=== PATIENT | female | born 1980 | race Caucasian/White ===

== ENCOUNTER 2021-09-20 08:51 | Outpatient (CLI) | payer OTHER | END 2021-09-20 08:52 | disposition home or self-care (01) | LOC: CSHCT 08:51 | PROVIDERS: ATTEND Internal Medicine | DX: R63.4 Abnormal weight loss (principal); M25.50 Pain in unspecified joint; L98.9 Disorder of the skin and subcutaneous tissue, unspecified; I25.10 Atherosclerotic heart disease of native coronary artery without angina pectoris; N20.0 Calculus of kidney | CPT/HCPCS: 71260; 71270; 74177 ==

== ENCOUNTER 2021-11-06 09:28 | Outpatient (CLI) | payer OTHER | END 2021-11-06 09:29 | disposition home or self-care (01) | LOC: CSHRAD 09:28 | PROVIDERS: ATTEND Family Medicine | DX: R74.01 Elevation of levels of liver transaminase levels (principal) | CPT/HCPCS: 76705 ==

== ENCOUNTER 2021-11-08 21:25 | Observation (INO) | payer OTHER ==
[2021-11-08] MEDS ORDERED: Amino Acids 4.25 %/Dextrose 5% 1,000 ML IV SCH (23:59)
[2021-11-09] MEDS ORDERED: AA 4.25 %/CALCIUM/LYTES/D5W 2,000 ML IV SCH (01:00)
[2021-11-09 06:43] LABS: #Basophils 0.1 10x3/uL (0.0-0.2); #Eosinphils 0.1 10x3/uL (0.0-0.5); #Monocytes 0.7 10x3/uL (0.0-1.1); #Neutrophils 4.5 10x3/uL (1.5-8.4); %Basophils 0.8 % (0.0-2.0); %Eosinophils 1.1 % (0.0-6.0); %Lymphocytes 35.9 % (18.0-47.0); %Monocytes 7.9 % (0.0-10.0); %Neutrophils 54.1 % (40.0-75.0); Mean Corpuscular HGB CONC 31.9 g/dL (32.0-36.0); Mean Corpuscular Hemoglobin 27.6 pg (27.0-33.0); Mean Corpuscular Volume 86.5 fl (81.6-98.3); Mean Platelet Volume 8.7 fl (7.4-10.4); Platelet Count 398 10x3/uL (150-450); RBC Distribution Width 13.5 % (11.5-14.5); Red Blood Cell (RBC) Count 3.99 10x6/uL (3.90-5.03); White Blood Cell (WBC) Count 8.4 10x3/uL (3.5-10.5)
[2021-11-09 06:47] LABS: ALT (SGPT) 51 U/L (8-55); AST (SGOT) 18 U/L (5-34); Albumin 3.4 g/dL (3.5-5.0); Alkaline Phosphatase 96 U/L (40-110); Anion Gap 14 mmol/L (10-20); BUN (Urea Nitrogen) 14 mg/dL (7.0-18.7); Bilirubin, Total 0.5 mg/dL (0.2-1.2); Calc. Creatinine Clearance 151 mL/min (70-130); Calcium 9.2 mg/dL (7.8-10.44); Carbon Dioxide 24 mmol/L (22-29); Chloride 106 mmol/L (98-107); Globulin 3.2 g/dL (2.4-3.5); Glucose 82 mg/dL (70-105); Potassium 3.8 mmol/L (3.5-5.1); Protein, Total 6.6 g/dL (6.0-8.3); Sodium 140 mmol/L (136-145)
[2021-11-09 08:30] VITALS: BMI 42.8
[2021-11-09] MEDS: Enoxaparin Sodium 40 MG/0.4 ML SYRINGE SC SCH ×2 (08:55→17:05)
[2021-11-09 10:01] VITALS: TEMP 98.4
[2021-11-09 16:19] VITALS: BP 132/72
== END 2021-11-09 16:45 | disposition home or self-care (01) ==
LOC: INTOOBSV 21:25 → CSHTELE 21:25
PROVIDERS: ADMIT Family Medicine; ATTEND Family Medicine
DX: U07.1 COVID-19 (principal); B37.0 Candidal stomatitis; B37.3 Candidiasis of vulva and vagina; Z86.19 Personal history of other infectious and parasitic diseases; K13.70 Unspecified lesions of oral mucosa; Z79.899 Other long term (current) drug therapy; Z87.891 Personal history of nicotine dependence
CPT/HCPCS: 36416; 71045; 80053; 85025; 94760; 96374; G0378; J1650

== ENCOUNTER 2022-09-12 09:37 | Outpatient (CLI) | payer BC | END 2022-09-12 09:38 | disposition home or self-care (01) | LOC: CSHRAD 09:37 | PROVIDERS: ATTEND Family Medicine | DX: R13.19 Other dysphagia (principal); R63.30 Feeding difficulties, unspecified | CPT/HCPCS: 74230 ==

== ENCOUNTER 2023-07-15 08:02 | Day surgery (SDC) | payer BC ==
[2023-07-10 11:15] VITALS: BMI 42.9
[2023-07-10 11:56] LABS: Hematocrit 40.1 % (34.9-44.5); Hemoglobin 12.9 g/dL (12.0-15.5); Mean Corpuscular HGB CONC 32.2 g/dL (32.0-36.0); Mean Corpuscular Hemoglobin 29.2 pg (27.0-33.0); Mean Corpuscular Volume 90.7 fl (81.6-98.3); Mean Platelet Volume 9.4 fl (7.4-10.4); Platelet Count 444 10x3/uL (150-450); RBC Distribution Width 13.4 % (11.5-14.5); Red Blood Cell (RBC) Count 4.42 10x6/uL (3.90-5.03); White Blood Cell (WBC) Count 9.4 10x3/uL (3.5-10.5)
[2023-07-10 12:09] LABS: BHCG - Serum Negative (NEGATIVE); Pregs Control Background? CLEAR/WHITE (CLR/WHITE); Pregs Control Bar Appear? YES (CONTROL BAR)
[2023-07-15] MEDS ORDERED: CeleCOXIB 100 MG CAP ONE (08:09)
[2023-07-15] MEDS ORDERED: Gabapentin 300 MG CAP ONE (08:09)
[2023-07-15] MEDS ORDERED: Famotidine/PF 20 mg/2ml Vial ONE (08:10)
[2023-07-15] MEDS ORDERED: EPINEPHrine 1 MG/ML VIAL ONE (09:31)
[2023-07-15] MEDS ORDERED: Bupivacaine PF 0.5% 30 ML VIAL ONE (09:32)
[2023-07-15] MEDS ORDERED: Midazolam HCl 2 mg/2 ml Vial ONE (09:34)
[2023-07-15] MEDS ORDERED: Ondansetron PF 4 MG/2 ML Vial ONE (09:34)
[2023-07-15] MEDS ORDERED: Rocuronium Bromide 10 MG/ML (10ML VIAL) ONE (09:34)
[2023-07-15] MEDS ORDERED: Lidocaine 1% PF 5 ML VIAL ONE (09:34)
[2023-07-15] MEDS ORDERED: Dexamethasone 20 MG/5 ML VIAL ONE (09:34)
[2023-07-15] MEDS ORDERED: Fentanyl 250 MCG/5 ML VIAL ONE (09:34)
[2023-07-15] MEDS ORDERED: PROPOFOL 20 ML ONE (09:34)
[2023-07-15] MEDS ORDERED: Sevoflurane 250 ML INH ANEST BOTTLE ONE (09:39)
[2023-07-15] MEDS ORDERED: CEFAZOLIN 2 GM VIAL ONE (09:52)
[2023-07-15] MEDS ORDERED: fentaNYL 50 mcg/mL 1 mL Vial ONE (12:06)
[2023-07-15] MEDS ORDERED: Meperidine HCl/PF 25 MG/ML VIAL ONE (12:11)
[2023-07-15] MEDS ORDERED: oxyCODONE 5 MG TAB ONE ×2 (12:51→13:44)
== END 2023-07-15 14:45 | disposition home or self-care (01) ==
LOC: CSHSDC 08:02
PROVIDERS: ATTEND Student in an Organized Health Care Education/Training Program
PROC: 0UT94ZZ Resection of Uterus, Percutaneous Endoscopic Approach (ICD-10-PCS; principal; 2023-07-15)
PROC: 0UB24ZZ Excision of Bilateral Ovaries, Percutaneous Endoscopic Approach (ICD-10-PCS; principal; 2023-07-15)
PROC: 0UB74ZZ Excision of Bilateral Fallopian Tubes, Percutaneous Endoscopic Approach (ICD-10-PCS; principal; 2023-07-15)
DX: N80.101 Endometriosis of right ovary, unspecified depth (principal); N83.12 Corpus luteum cyst of left ovary; K21.9 Gastro-esophageal reflux disease without esophagitis; E66.01 Morbid (severe) obesity due to excess calories; Z68.41 Body mass index [BMI] 40.0-44.9, adult; E89.41 Symptomatic postprocedural ovarian failure; Z87.891 Personal history of nicotine dependence; Z90.49 Acquired absence of other specified parts of digestive tract; Z88.2 Allergy status to sulfonamides; Z88.1 Allergy status to other antibiotic agents
CPT/HCPCS: 36415; 84703; 85027; 86850; 86900; 86901; 88307; J0171; J1100; J2175; J2250; J2405; J2704; J3010; S0020; S0028